=== PATIENT | male | born 1990 | race Caucasian/White ===

== ENCOUNTER 2025-02-21 04:10 | Inpatient (IN) | payer OTHER ==
[~2025-02-21] VITALS: Ht 188 cm; Wt 86.6 kg
[2025-02-21] MEDS ORDERED: VANCOMYCIN 1.5GM/250ML 250 ML IV STA (06:15)
[2025-02-21] MEDS ORDERED: CEFEPIME 2GM IN DEXT 5% 100ML IV ONE (06:15)
[2025-02-21] MEDS: CEFEPIME 2,000MG in DEXT 5% WATER 100ML IV NR (06:30)
[2025-02-21] MEDS: MORPHINE SULFATE 4 MG/ML INJ (FOR IV/IM USE) IV ONE (06:43)
[2025-02-21 06:46] LABS: BASOPHILS % 0.8 % (0.0-2.0); EOSINOPHILS % 3.3 % (0.0-5.0); HEMATOCRIT. 39.8 % (42.0-52.0); HEMOGLOBIN. 13.5 g/dL (14.0-18.0); LYMPHOCYTES % 29.5 % (20.0-50.0); MEAN CORPUSCULAR HEMOGLOBIN 30.4 pg (28.0-32.0); MEAN CORPUSCULAR HGB CONC 33.8 g/dL (31.0-37.0); MEAN PLATELET VOLUME 8.1 fl (7.4-10.4); MONOCYTES % 6.3 % (2.0-8.0); NEUTROPHILS % 60.1 % (40.0-76.0); PLATELET 265 x1000/uL (130-400); RED BLOOD CELL COUNT 4.43 mill/uL (4.7-6.1); RED CELL DISTRIBUTION WIDTH 12.9 % (11.6-14.6); WHITE BLOOD COUNT 9.1 x1000/uL (4.5-11.0)
[2025-02-21 06:50] LABS: CHLORIDE 105 mEq/L (98-107); POTASSIUM 4.4 mEq/L (3.5-5.1); SODIUM 139 mEq/L (136-145)
[2025-02-21 06:51] LABS: CALCIUM 9.4 mg/dL (8.7-10.4); CARBON DIOXIDE 28 mEq/L (21-32)
[2025-02-21 06:56] LABS: CREATININE 0.9 mg/dL (0.6-1.3); GLUCOSE 88 mg/dL (70-105); UREA NITROGEN BLOOD 20 mg/dL (9-23)
[2025-02-21 06:58] LABS: ALANINE AMINOTRANSFERASE 14 IU/L (10-49); ALBUMIN 4.6 g/dL (3.2-4.8); ASPARTATE AMINOTRANSFERASE 22 IU/L (<34); BILIRUBIN TOTAL 0.2 mg/dL (0.1-1.0)
[2025-02-21] MEDS: VANCOMYCIN 1.5GM PMX (XELLIA) 300 ML IV NR (07:04)
[2025-02-21 08:00] VITALS: BP 125/68; PULSE 51; RESP 15; TEMP 36.3; O2SAT 97
[2025-02-21 10:00] VITALS: BP 125/68; PULSE 51; RESP 16; TEMP 36.4
[2025-02-21] MEDS ORDERED: ACETAMINOPHEN 650MG/20.3ML UDC PO PRN (10:15)
[2025-02-21] MEDS ORDERED: NALOXONE HCL 0.4MG/ML VIAL IV PRN ×2 (10:30→14:45)
[2025-02-21] MEDS: HYDROCODONE/ACETAMINOPHEN 5/325MG TABLET PO PRN (10:55)
[2025-02-21] MEDS ORDERED: IOHEXOL-300 100 ML BOTTLE ONE (10:58)
[2025-02-21 12:00] VITALS: BP 102/71; PULSE 50; RESP 15; TEMP 37.1; O2SAT 100
[2025-02-21] MEDS: HYDROCODONE/ACETAMINOPHEN 10/325MG TABLET PO PRN (14:55)
[2025-02-21 16:00] VITALS: BP 111/62; PULSE 68; RESP 17; TEMP 36.2; O2SAT 100
[2025-02-21] MEDS: VANCOMYCIN 1GM/200ML PMX (BAXTER) IV SCH (18:06)
[2025-02-21 20:00] VITALS: BP 114/65; PULSE 65; RESP 18; TEMP 36.3; O2SAT 100
[2025-02-21] MEDS ORDERED: VANCOMYCIN 1G PREMIX 200 ML IV SCH (21:00)
[2025-02-21] MEDS: PIPERACILLIN/TAZO 3.375G/50ML 50 ML IV SCH (22:57)
[2025-02-22] VITALS: BP 120/71; PULSE 55; RESP 18; TEMP 36.5; O2SAT 97
[2025-02-22] MEDS ORDERED: DIPHENHYDRAMINE 50MG/ML VIAL IV PRN (02:15)
[2025-02-22] MEDS ORDERED: ZOLPIDEM TARTRATE 5MG TABLET PO PRN (02:15)
[2025-02-22] MEDS ORDERED: ACETAMINOPHEN 325MG TABLET PO PRN (02:15)
[2025-02-22] MEDS ORDERED: MAGNESIUM/ALUMINUM HYDROXIDE/SIMETHICONE 30ML UDC PO PRN (02:15)
[2025-02-22] MEDS: SODIUM CHLORIDE 0.9% 3ML FLUSH IVF SCH (05:59)
[2025-02-22] MEDS: ACETAMINOPHEN 325MG TABLET PO PRN (06:56)
[2025-02-22 08:00] VITALS: BP 104/59; PULSE 45; RESP 18; TEMP 36.4; O2SAT 98
[2025-02-22] MEDS: ENOXAPARIN 40MG/0.4ML SYR SUBCUT SCH (09:00)
[2025-02-22] MEDS: ONDANSETRON HCL 4MG/2ML INJ IV PRN (11:42)
[2025-02-22 12:00] VITALS: BP 110/69; PULSE 50; RESP 18; TEMP 36.4; O2SAT 100
[2025-02-22 16:00] VITALS: BP 117/62; PULSE 53; RESP 18; TEMP 36.5; O2SAT 99
[2025-02-22 20:00] VITALS: BP 108/50; PULSE 50; RESP 18; TEMP 36.5; O2SAT 98
[2025-02-23] MEDS: VANCOMYCIN 1GM/200ML PMX (BAXTER) IV SCH ×2 (01:05→21:06)
[2025-02-23 04:00] VITALS: BP 117/50; PULSE 50; RESP 18; TEMP 36.5; O2SAT 96
[2025-02-23 07:34] LABS: CARBON DIOXIDE 30 mEq/L (21-32); CHLORIDE 102 mEq/L (98-107); POTASSIUM 3.9 mEq/L (3.5-5.1); SODIUM 139 mEq/L (136-145)
[2025-02-23 07:35] LABS: CALCIUM 8.8 mg/dL (8.7-10.4)
[2025-02-23 07:40] LABS: GLUCOSE 102 mg/dL (70-105); UREA NITROGEN BLOOD 15 mg/dL (9-23)
[2025-02-23 07:53] LABS: BASOPHILS % 0.4 % (0.0-2.0); HEMATOCRIT. 39.2 % (42.0-52.0); HEMOGLOBIN. 13.3 g/dL (14.0-18.0); LYMPHOCYTES % 24.9 % (20.0-50.0); MEAN CORPUSCULAR HEMOGLOBIN 30.1 pg (28.0-32.0); MEAN CORPUSCULAR VOLUME 88.5 fL (80.0-94.0); MEAN PLATELET VOLUME 8.5 fl (7.4-10.4); NEUTROPHILS % 64.7 % (40.0-76.0); PLATELET 237 x1000/uL (130-400); RED BLOOD CELL COUNT 4.42 mill/uL (4.7-6.1); RED CELL DISTRIBUTION WIDTH 13.2 % (11.6-14.6)
[2025-02-23 08:00] VITALS: BP 125/78; PULSE 54; RESP 16; TEMP 36.5; O2SAT 98
[2025-02-23] MEDS: SILVER SULFADIAZINE 1% CREAM 50GM TOP SCH (09:00)
[2025-02-23] MEDS: CHLORHEXIDINE GLUCONATE 4% EXTERNAL USE TOP SCH (09:00)
[2025-02-23] MEDS: KETOROLAC 30MG/ML VIAL IV PRN (11:19)
[2025-02-23 12:00] VITALS: BP 115/75; PULSE 65; RESP 16; TEMP 36.4; O2SAT 100
[2025-02-23 16:00] VITALS: BP 112/73; PULSE 54; RESP 16; TEMP 36.4; O2SAT 98
[2025-02-23] MEDS: MORPHINE SULFATE 4 MG/ML INJ (FOR IV/IM USE) IV PRN (19:47)
[2025-02-24 08:00] VITALS: BP 116/58; PULSE 57; RESP 20; TEMP 36.4; O2SAT 57
[2025-02-24 12:00] VITALS: BP 127/55; PULSE 60; RESP 20; TEMP 36.4; O2SAT 99
[2025-02-24 16:00] VITALS: BP 115/51; PULSE 51; RESP 20; TEMP 36.5; O2SAT 99
[2025-02-24 16:20] VITALS: BP 115/51; PULSE 51; TEMP 97.7; O2SAT 99
[2025-02-24] MEDS ORDERED: CEPHALEXIN 250MG CAPSULE PO SCH (22:00)
== END 2025-02-24 17:00 | disposition home or self-care (01) | DRG 603 ==
LOC: ER 04:10 → EDBEDREQTM 06:45 → EDBEDREQ 06:45 → EDBEDREQSVC 06:46 → 7EST 08:08
PROVIDERS: ADMIT Internal Medicine; ATTEND Internal Medicine
DX: L03.116 Cellulitis of left lower limb (principal); M21.962 Unspecified acquired deformity of left lower leg; L25.9 Unspecified contact dermatitis, unspecified cause; L98.492 Non-pressure chronic ulcer of skin of other sites with fat layer exposed; Z79.899 Other long term (current) drug therapy; Z88.8 Allergy status to other drugs, medicaments and biological substances
CPT/HCPCS: 36415; 73630; 73701; 80048; 80053; 80202; 85025; 87070; 97110; 97162; 99285; A4606; J0692; J1650; J1885; J2270; J2405; J2543; J3370; J7060; Q9967